=== PATIENT | female | born 1955 | race Caucasian/White ===

== ENCOUNTER → 2023-02-23 | Outpatient (CLI) | payer MEDICARE ==
[2023-02-25 13:09] LABS: HSV-1 DNA Negative (Negative)
[2023-02-25 14:12] LABS: HSV-2 DNA Positive
== END ==
LOC: LAB SHORT 13:55 → LAB 13:55
PROVIDERS: Pathology Dermatopathology
DX: B00.1 Herpesviral vesicular dermatitis (principal)
CPT/HCPCS: 87529; 87798

== ENCOUNTER 2025-10-24 05:51 | Day surgery (SDC) | payer MEDICARE ==
[2025-10-24] VITALS (13 sets, daily range): BP systolic 110–160; BP diastolic 48–75
[~2025-10-24] VITALS: Ht 154.9 cm; Wt 66.5 kg
[~2025-10-24 05:51] MED LIST: EUTHYROX50 MCG PO; LOSA25 PO; MULVITB PO
[2025-10-24] MEDS ORDERED: Tranexamic Acid 100 ML IV SCH (06:30)
[2025-10-24] MEDS ORDERED: Chlorhexidine Mouth Care 15 ML UDC MT SCH (06:30)
[2025-10-24] MEDS ORDERED: Ropivacaine 0.5% HCl/Pf 123.125 MG,EPINEPHrine HCL 0.25 MG,Ketorolac Tromethamine 15 MG... INFIL SCH (06:30)
[2025-10-24] MEDS ORDERED: CeFAZolin Sodium 2,000 MG in NS 100 ML IV SCH ×2 (06:30→16:00)
--- NOTE | 2025-10-24 07:14 | NUR ---
PATIENT ACCOMPANIED TO DAY SURGERY WITH SPOUSE. DISCUSSED PRESERVATIVE ALLERGY WITH DR JUAREZ FROM ANESTHESIA.
[2025-10-24] MEDS ORDERED: FentaNYL Citrate 50 MCG/ML 2 ML Injection ONE (07:22)
--- NOTE | 2025-10-24 07:28 | NUR ---
KNEE HIGH RON HOSE AND CALF PAS APPLIED TO BLE PER ORDER.
[2025-10-24] MEDS ORDERED: Phenylephrine HCl 100 MCG/ML-NS 10MLSYR (1MG/10ML) ONE (08:06)
[2025-10-24] MEDS ORDERED: HYDROmorphone HCl/Pf 1MG SYR IV PRN ×2 (08:50→09:30)
[2025-10-24] MEDS ORDERED: FentaNYL Citrate 50 MCG/ML 2 ML Injection IV PRN ×2 (08:50)
[2025-10-24] MEDS ORDERED: Dexamethasone Sodium Phosphate 4 MG/ML 5ML VIAL IV PRN (08:50)
[2025-10-24] MEDS ORDERED: Ondansetron HCl 2 MG / ML 2ML Vial IV PRN ×2 (08:50→09:35)
[2025-10-24] MEDS ORDERED: Ondansetron HCl 2 MG / ML 2ML Vial ONE (09:16)
[2025-10-24] MEDS ORDERED: Metoclopramide HCl 5MG / ML 2ML Vial IV PRN (09:30)
[2025-10-24] MEDS ORDERED: FLU VACC TS2025(65UP)/MF59C/PF 45 MCG/0.5 ML SYRINGE IM SCH (09:30)
[2025-10-24] MEDS ORDERED: Magnesium Hydroxide Conc 10 ML UDC PO PRN (09:35)
[2025-10-24] MEDS ORDERED: Prochlorperazine Edisylate 10 mg Vial IV PRN (09:35)
[2025-10-24] MEDS ORDERED: ASPI81CH PO (11:15)
[2025-10-24] MEDS ORDERED: Ketorolac Tromethamine 15mg Vial IV SCH (12:00)
--- NOTE | 2025-10-24 16:12 | NUR ---
THERAPY IN TO SEE PT.
--- NOTE | 2025-10-24 16:58 | NUR ---
discharged pt met criteria for dc. reviewed dc instructions w/pt and pt and spouse verbalized understanding. pt left unit in [place], accompanied by spouse who had dc paperwork and possessions in hand.
[2025-10-25] MEDS ORDERED: Vitamin B Complex 1 EA Softgel PO SCH (09:00)
== END 2025-10-24 16:47 | disposition home or self-care (01) ==
LOC: ORSCMMR 05:51 → ORD 07:30 → SURS 10:00 → ORSCMMR 16:47
PROVIDERS: Orthopaedic Surgery
PROC: 0SRB0JA Replacement of Left Hip Joint with Synthetic Substitute, Uncemented, Open Approach (ICD-10-PCS; principal; 2025-10-24 07:30)
DX: M16.12 Unilateral primary osteoarthritis, left hip (principal); I10 Essential (primary) hypertension; Z87.891 Personal history of nicotine dependence; E03.9 Hypothyroidism, unspecified; Z79.899 Other long term (current) drug therapy
CPT/HCPCS: 27130; 0055T; 72170; 97110; 97116; 97161; 97530; A9270; C1776; J0166; J0690; J0735; J1885; J2371; J2405; J2704; J2765; J2795; J3010; J7120